=== PATIENT | male | born 1975 | race Two or more races ===

== ENCOUNTER 2020-03-18 12:16 | Observation (INO) | payer OTHER ==
[~2020-03-18] VITALS: Ht 182.9 cm; Wt 113.4 kg
[~2020-03-18 12:16] MED LIST: IBUP600 PO
[2020-03-18 13:10] LABS: Calcium, Ionized (POC) 1.21 mmol/L (1.10-1.46); Chloride (POC) 100 mmol/L (98-108); Creatinine (POC) 0.5 mg/dL (0.8-1.3); Glucose (ISTAT POC) 351 mg/dL (70-99); Hemoglobin (POC) 17.3 g/dL (13.5-17.5); Potassium (POC) 3.8 mmol/L (3.5-5.5); Sodium (POC) 138 mmol/L (135-148); Total CO2 (POC) 24 mmol/L (21-32)
[2020-03-18 16:51] LABS: BASOPHILS ABSOLUTE AUTO 0.02 K/mm3 (0.00-0.23); BASOPHILS PERCENT AUTO 0 % (0-2); EOSINOPHILS ABSOLUTE AUTO 0.09 K/mm3 (0.00-0.68); EOSINOPHILS PERCENT AUTO 1 % (0-6); Hematocrit 49.7 % (37.0-53.0); Hemoglobin 16.9 g/dL (13.5-17.5); IMMATURE GRAN ABSOLUTE AUTO 0.05 K/mm3 (0.00-0.10); IMMATURE GRAN PERCENT AUTO 1 % (0-1); LYMPHOCYTES ABSOLUTE AUTO 1.35 K/mm3 (0.84-5.20); LYMPHOCYTES PERCENT AUTO 15 % (21-46); MONOCYTES PERCENT AUTO 6 % (4-13); Mean Corpuscular HGB 28.8 pg (26.0-34.0); Mean Corpuscular Volume 85 fL (80-100); Mean Platelet Volume 10.6 fL (9.1-12.4); NEUTROPHILS ABSOLUTE AUTO 6.92 K/mm3 (1.96-9.15); NEUTROPHILS PERCENT AUTO 78 % (41-73); Platelet Count 269 K/mm3 (150-400); RDW Coefficient Variation 11.9 % (11.7-14.2); RDW Standard Deviation 36.5 fL (35.1-46.3); Red Blood Cell Count 5.86 M/mm3 (4.30-5.90); White Blood Cell Count 8.93 K/mm3 (4.00-11.30)
[2020-03-18 17:06] LABS: Anion Gap 8 mmol/L (6-16); Blood Urea Nitrogen 12 mg/dL (8-24); Bun/Creatinine Ratio 20.9 (12.0-20.0); CO2, Blood 26 mmol/L (21-32); Calcium, Blood 9.3 mg/dL (8.5-10.1); Chloride, Blood 107 mmol/L (98-108); Creatinine, Blood 0.57 mg/dL (0.60-1.20); Glomerular Filtration Rate >60 (60-); Glucose, Blood 338 mg/dL (70-99); Potassium, Blood 3.9 mmol/L (3.5-5.5); Sodium, Blood 141 mmol/L (136-145)
[2020-03-18] MEDS ORDERED: IBUP600 PO (17:38)
--- NOTE | 2020-03-18 19:18 | NUR ---
PT ARRIVED TO UNIT FROM ER TRANSFERRED INDEPENDENTLY FROM [facility] TO BED. PT REPORTED PAIN TOLERABLE AT TIME OF ARRIVAL TO FLOOR. ORIENTED TO ROOM/CALL LIGHT. PT DENIES ANY NEEDS AT TIME OF ARRIVAL. CALL LIGHT IN REACH. REPORT GIVEN TO ONCOMING SHIFT.
[2020-03-19 04:53] LABS: BASOPHILS ABSOLUTE AUTO 0.01 K/mm3 (0.00-0.23); BASOPHILS PERCENT AUTO 0 % (0-2); EOSINOPHILS ABSOLUTE AUTO 0.13 K/mm3 (0.00-0.68); EOSINOPHILS PERCENT AUTO 2 % (0-6); Hematocrit 44.6 % (37.0-53.0); Hemoglobin 15.3 g/dL (13.5-17.5); IMMATURE GRAN ABSOLUTE AUTO 0.02 K/mm3 (0.00-0.10); IMMATURE GRAN PERCENT AUTO 0 % (0-1); LYMPHOCYTES ABSOLUTE AUTO 1.96 K/mm3 (0.84-5.20); LYMPHOCYTES PERCENT AUTO 27 % (21-46); MONOCYTES ABSOLUTE AUTO 0.57 K/mm3 (0.16-1.47); MONOCYTES PERCENT AUTO 8 % (4-13); Mean Corpuscular HGB 29.1 pg (26.0-34.0); Mean Corpuscular HGB Conc 34.3 g/dL (31.5-36.5); Mean Corpuscular Volume 85 fL (80-100); Mean Platelet Volume 9.9 fL (9.1-12.4); NEUTROPHILS ABSOLUTE AUTO 4.49 K/mm3 (1.96-9.15); NEUTROPHILS PERCENT AUTO 63 % (41-73); Platelet Count 211 K/mm3 (150-400); RDW Standard Deviation 36.9 fL (35.1-46.3); Red Blood Cell Count 5.26 M/mm3 (4.30-5.90); White Blood Cell Count 7.18 K/mm3 (4.00-11.30)
[2020-03-19 05:08] LABS: Anion Gap 6 mmol/L (6-16); Blood Urea Nitrogen 11 mg/dL (8-24); Bun/Creatinine Ratio 23.8 (12.0-20.0); CO2, Blood 26 mmol/L (21-32); Calcium, Blood 8.5 mg/dL (8.5-10.1); Chloride, Blood 108 mmol/L (98-108); Creatinine, Blood 0.46 mg/dL (0.60-1.20); Glomerular Filtration Rate >60 (60-); Glucose, Blood 228 mg/dL (70-99); Potassium, Blood 3.3 mmol/L (3.5-5.5); Sodium, Blood 140 mmol/L (136-145)
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
[2020-03-19] MEDS ORDERED: HUMALOG KW100 UNIT/1 SC (14:29)
[2020-03-19] MEDS ORDERED: LISI5 PO (14:29)
[2020-03-19] MEDS ORDERED: SEMGLEE PE100 UNIT/1 SC (14:30)
--- NOTE | 2020-03-19 16:01 | NUR ---
DC INSTRUCTIONS GIVEN, VERBALIZED UNDERSTANDING, PT HAS DENIED ANY NEED FOR PAIN MEDS OR SOB ALL DAY, MATERIAL MOVER PROVIDED DIABETES EDUCATION TO PT, PT INSTRUCTED ON INSULIN ADMINISTRATION, LOW SLIDING SCALE AND SIGNS AND SYMPTOMS OF HYPERGLYCEMIA AND HYPOGLYCEMIA AND IMMEDIATE INTERVENTIONS, PT VERBALIZED UNDERSTANDING AND WAS ABLE TO RETURN DEMONSTRATION OF HOW TO GIVE SELF INSULIN, PT GIVEN INSTRUCTIONS BY [employer]RA[employer] WORKER RAND SPEAR ON GETTING ESTABLISHED WITH A PCP.
== END 2020-03-19 16:12 | disposition home or self-care (01) ==
LOC: ER 12:16 → SURS 12:17
PROVIDERS: Emergency Medicine; ADMIT Surgery
DX: S22.32XA Fracture of one rib, left side, initial encounter for closed fracture (principal); R73.9 Hyperglycemia, unspecified; I10 Essential (primary) hypertension; Z79.4 Long term (current) use of insulin; Z79.899 Other long term (current) drug therapy; V43.53XA Car driver injured in collision with pick-up truck in traffic accident, initial encounter
CPT/HCPCS: 36415; 70498; 71260; 72125; 74177; 80047; 80048; 82947; 83036; 85014; 85025; 96361; 96374; 96375; 99285-25; A9270-GY; G0378; J1170; J2405; J7030; J7120; Q9967